=== PATIENT | male | born 2000 | race Hispanic/Latino ===

== ENCOUNTER 2024-07-01 14:54 | Inpatient (IN) | payer OTHER ==
[~2024-07-01] VITALS: Ht 170.2 cm; Wt 89.2 kg
[2024-07-01] MEDS: LORazepam 2 MG TAB PO PRN (15:43)
[2024-07-01] MEDS: MULTIVITAMINS/MINERALS THERAP 1 TAB PO SCH (15:43)
[2024-07-01] MEDS: FOLIC ACID 1MG TAB PO SCH (15:44)
[2024-07-01 16:11] LABS: BASO # 0.1 10^3/uL (0.0-0.2); BASO % 1.6 % (0.0-1.0); EOS # 0.4 10^3/uL (0.0-0.5); EOS % 5.7 % (0.0-3.0); HEMATOCRIT 47.4 % (42.0-52.0); HEMOGLOBIN 16.4 g/dl (13.5-17.5); LYMPH # 1.5 10^3/uL (1.5-5.0); LYMPH % 19.1 % (24.0-44.0); MEAN CORPUSCULAR HEMOGLOBIN 29.2 pg (27.0-33.0); MEAN CORPUSCULAR HGB CONC 34.6 g/dl (32.0-36.5); MEAN CORPUSCULAR VOLUME 84.3 fl (80.0-96.0); MONO # 0.7 10^3/uL (0.0-0.8); MONO % 8.9 % (2.0-8.0); NEUTROPHILS % 64.3 % (36.0-66.0); PLATELET COUNT, AUTOMATED 194 10^3/uL (150-450); RED BLOOD COUNT 5.62 10^6/uL (4.30-6.10); WHITE BLOOD COUNT 7.7 10^3/uL (4.0-10.0)
[2024-07-01 16:26] LABS: ETHYL ALCOHOL (ETHANOL) < 0.003 % (0.000-0.010)
[2024-07-01 16:28] LABS: ALBUMIN 4.3 G/DL (3.2-5.2); ALKALINE PHOSPHATASE 152 U/L (46-116); ALT/SGPT 45 U/L (7.0-40); AST/SGOT 24 U/L (<34); BILIRUBIN,DIRECT 0.3 MG/DL (<0.4); BILIRUBIN,TOTAL 0.9 MG/DL (0.3-1.2); BLOOD UREA NITROGEN 10 MG/DL (9-23); CALCIUM LEVEL 10.3 MG/DL (8.5-10.1); CARBON DIOXIDE LEVEL 27 MMOL/L (20-31); CHLORIDE LEVEL 107 MMOL/L (98-107); CREATININE FOR GFR 0.86 MG/DL (0.70-1.30); GLOMERULAR FILTRATION RATE > 60.0 (>60); GLUCOSE, FASTING 85 MG/DL (60-100); POTASSIUM SERUM 4.2 MMOL/L (3.5-5.1); SALICYLATE LEVEL < 3.0 MG/DL (<30); SODIUM LEVEL 140 MMOL/L (136-145); TOTAL PROTEIN 7.4 G/DL (5.7-8.2)
[2024-07-01 16:32] LABS: CPK CREATINE PHOSPHOKINASE 188 U/L (46-171)
[2024-07-01 16:37] LABS: AMPHETAMINES LEVEL URINE NEGATIVE (NEGATIVE); BARBITURATES URINE NEGATIVE (NEGATIVE); BENZODIAZEPINES URINE NEGATIVE (NEGATIVE); CANNABINOIDS URINE NEGATIVE (NEGATIVE); COCAINE METABOLITE URINE NEGATIVE (NEGATIVE); METHADONE URINE NEGATIVE (NEGATIVE); OPIATES URINE NEGATIVE (NEGATIVE); PHENCYCLIDINE URINE NEGATIVE (NEGATIVE)
[2024-07-01] MEDS ORDERED: TRAZ-252 PO (18:06)
[2024-07-01] MEDS ORDERED: ZOLO100T PO (18:06)
[2024-07-01] MEDS ORDERED: HOME MED LIST COMPLETE! XX SCH (18:10)
[2024-07-01] MEDS: THIAMINE 100 MG TAB PO SCH ×2 (20:43→21:05)
[2024-07-01] MEDS ORDERED: ACETAMINOPHEN TAB 650MG DOSE (2X325MG) PO PRN (20:45)
[2024-07-01] MEDS ORDERED: LORazepam 2 MG TAB PO PRN (20:45)
[2024-07-01] MEDS ORDERED: IBUPROFEN 400MG TAB PO PRN (20:45)
[2024-07-01] MEDS ORDERED: MAALOX 30 ML SUSP *UDC PO PRN (20:45)
[2024-07-01] MEDS ORDERED: diphenhydrAMINE 25MG CAP PO PRN (20:45)
[2024-07-01] MEDS ORDERED: MOM 30ML SUSPENSION UDC PO PRN (20:45)
[2024-07-01] MEDS: traZODone 50 MG TAB PO SCH (23:20)
[2024-07-01 23:25] VITALS: BP 128/83
[2024-07-02 06:26] VITALS: BP 127/76; TEMP 98; O2SAT 97
[2024-07-02 07:46] VITALS: BP 139/89
[2024-07-02] MEDS: MULTIVITAMINS/MINERALS THERAP 1 TAB PO SCH (08:31)
[2024-07-02] MEDS: FOLIC ACID 1MG TAB PO SCH (08:31)
[2024-07-02] MEDS: SERTRALINE 100 MG TAB PO SCH (08:31)
[2024-07-02] MEDS: LORazepam 1 MG TAB PO SCH (09:23)
[2024-07-02 16:00] VITALS: BP 137/80; TEMP 97; O2SAT 98
[2024-07-02 22:00] VITALS: BP 128/92
[2024-07-03 06:00] VITALS: BP 124/81
[2024-07-03 06:51] VITALS: BP 124/81; TEMP 98; O2SAT 100
[2024-07-03] MEDS: FLUoxetine 20MG CAP PO SCH (08:14)
[2024-07-03] MEDS ORDERED: SERTRALINE 100 MG TAB PO SCH (12:00)
[2024-07-03 14:55] VITALS: BP 140/96; TEMP 97.3; O2SAT 98
[2024-07-03 22:00] VITALS: BP 115/71
[2024-07-04 06:00] VITALS: BP 124/76
[2024-07-04 06:34] VITALS: BP 124/76; TEMP 97.5; O2SAT 96
[2024-07-04 16:12] VITALS: BP 137/71; TEMP 97.3; O2SAT 98
[2024-07-05 06:14] VITALS: BP 133/83; TEMP 98.4; O2SAT 97
[2024-07-05] MEDS: LORazepam 0.5 MG TAB PO SCH (08:16)
[2024-07-05 16:05] VITALS: BP 133/80; TEMP 97.4; O2SAT 96
== END 2024-07-06 07:00 | DRG 885 ==
LOC: EDBD 14:54 → M ED 14:54 → M ED INP 20:45 → M PSY 23:05
PROVIDERS: ADMIT Psychiatry & Neurology Psychiatry; ATTEND Psychiatry & Neurology Psychiatry
DX: F33.9 Major depressive disorder, recurrent, unspecified (principal); R45.851 Suicidal ideations; F10.20 Alcohol dependence, uncomplicated; Z91.82 Personal history of military deployment; Z79.899 Other long term (current) drug therapy